=== PATIENT | female | born 1985 | race Caucasian/White ===

== ENCOUNTER 2017-08-26 14:39 | Emergency (ER) | payer OTHER ==
[2017-08-26] MEDS ORDERED: predniSONE 20 MG TABLET PO STA (15:07)
[2017-08-26] MEDS ORDERED: EPINEPHrine 1 MG/ML AMP IM STA (15:07)
--- NOTE | 2017-08-26 15:10 | ED Physician Documentation ---
PD HPI SKIN - Stated complaint Stated Complaint: ALLERGIC REACTION - Chief complaint Chief Complaint: Allergic Rx - History obtained from History obtained from: Patient - History of Present Illness Timing - onset: Other (At about 130 she tasted her son's amoxicillin, she just wanted to know how bad it tasted to know how much of a matthews it would be to get him to take it. Shortly thereafter, maybe 20 minutes later developed itching starting the scalp and then diffuse redness and nausea. No symptoms of angioedema or shortness of breath. She is not allergic to anything that we know of.) Review of Systems Ten Systems: 10 systems reviewed and negative Constitutional: denies: Fever, Chills Respiratory: denies: Dyspnea, Cough GI: reports: Nausea. denies: Abdominal Pain, Vomiting PD PAST MEDICAL HISTORY - Present Medications Home Medications: Ambulatory Orders Medication Instructions Recorded Confirmed EPINEPHrine [Epinephrine] 0.3 mg IJ ONCE PRN #2 auto.injct 08/26/17 predniSONE [Deltasone] 60 mg PO DAILY 5 Days tablet 08/26/17 - Allergies Allergies/Adverse Reactions: Allergies Allergy/AdvReac Type Severity Reaction Status Date / Time No Known Drug Allergies Allergy Verified 08/26/17 14:54 PD ED PE NORMAL - Vitals Vital signs reviewed: Yes - General General: Alert and oriented X 3, No acute distress - HEENT HEENT: PERRL, EOMI, Other (She has diffuse erythroderma with conjunctivitis bilaterally, no oral pharyngeal angioedema.) - Cardiac Cardiac: RRR, No murmur - Respiratory Respiratory: No respiratory distress, Clear bilaterally - Abdomen Abdomen: Non tender - Neuro Neuro: Alert and oriented X 3, Normal speech - Psych Psych: Normal mood, Normal affect Results - Vitals Vitals: Vital Signs - 24 hr 08/26/17 08/26/17 08/26/17 14:50 15:22 16:04 Temperature 37.1 C 36.8 C 36.4 C L Heart Rate 132 H 115 H 108 H Respiratory 20 18 15 Rate Blood Pressure 125/84 H 124/78 136/82 H O2 Saturation 96 98 97 Oxygen O2 Source Room air PD MEDICAL DECISION MAKING - ED course ED course: 31-year-old woman with mild anaphylaxis after tasting amoxicillin. She is administered epinephrine and steroids. She will be observed for several hours, she is driving and wanted to forego the Benadryl as in the past it has made her quite sleepy. She improved well and quickly after the epinephrine and was observed for a couple of hours without recurrence of her symptoms. The patient and family were counseled as to the diagnosis and need for follow- up. I counseled the patient with regard to signs and symptoms that would necessitate an urgent reevaluation in the emergency department. They understand they are welcome to return at any time if worse or if not improving as expected. This document was made in part using voice recognition software. While efforts are made to proofread this documents, sound alike and grammatical errors may occur. Departure - Departure Disposition: Home, Self Care Clinical Impression: Anaphylaxis Qualifiers: Encounter type: initial encounter Qualified Code(s): T78.2XXA - Anaphylactic shock, unspecified, initial encounter Condition: Good Record reviewed to determine appropriate education?: Yes Instructions: ED Drug React Allergic Prescriptions: EPINEPHrine [Epinephrine] 0.3 mg IJ ONCE PRN #2 auto.injct PRN Reason: Allergy Symptoms predniSONE [Deltasone] 60 mg PO DAILY 5 Days tablet Comments: Avoid amoxicillin in the future. Follow-up with your physician. For information on how to use the epinephrine autoinjector, lookup "EpiPen" on YouTube. Your blood pressure was elevated today on check into the emergency department. This does not mean that you have hypertension, it is a common phenomenon to come to the emergency department and have elevated blood pressure. I recommend that you see your primary care physician within the week to have it rechecked when you are feeling better.
[2017-08-26 17:53] VITALS: BP 117/77
== END 2017-08-26 17:58 | disposition home or self-care (01) ==
LOC: ED 14:39
DX: T88.6XXA Anaphylactic reaction due to adverse effect of correct drug or medicament properly administered, initial encounter (principal); T36.0X5A Adverse effect of penicillins, initial encounter; Y92.019 Unspecified place in single-family (private) house as the place of occurrence of the external cause; R03.0 Elevated blood-pressure reading, without diagnosis of hypertension
CPT/HCPCS: 96372; 99284; J7512

== ENCOUNTER 2021-02-26 13:02 | Outpatient (CLI) | payer OTHER ==
--- NOTE | 2021-02-26 13:47 | XRAY Report ---
PROCEDURE: Lumbar Spine 2 View INDICATIONS: LOW BACK PX TECHNIQUE: 2 views of the lumbar spine were acquired. COMPARISON: None. FINDINGS: Bones: 5 [id number] vertebrae are present. There is normal bony alignment. No vertebral body compression fractures. No suspicious bony lesions. Soft tissues: Overlying bowel gas pattern is normal. No suspicious soft tissue calcifications. IMPRESSION: No evidence acute bony abnormality of the lumbar spine. If clinical suspicion and/or symptoms persist, further assessment with repeat plain films or advanced imaging (e.g., CT, MRI, or bone scan) may be helpful for further assessment. Reviewed by: Jerry Graham MD on 02/26/2021 12:45 PM OTTO Approved by: Jerry Graham MD on 02/26/2021 12:45 PM OTTO Station ID: [id number]
== END 2021-02-26 13:03 | disposition home or self-care (01) ==
LOC: DI.N 13:02
PROVIDERS: ATTEND Nurse Practitioner
DX: M54.5 Low back pain (principal)

== ENCOUNTER 2021-04-06 14:59 | Outpatient (CLI) | payer OTHER ==
--- NOTE | 2021-04-06 16:01 | MRI Report ---
PROCEDURE: Lumbar Spine W/O INDICATIONS: LOW BACK PAIN TECHNIQUE: Noncontrast sagittal T1 spin echo and T2 fast echo, sagittal STIR, axial T1 and T2 fast spin echo thr ough the lumbar spine. In cases with scoliosis, additional coronal T2 fast spin echo may be performe d. COMPARISON: None. FINDINGS: Image quality: Excellent. Alignment and Curvature: There is normal bony alignment. Bone Marrow: Marrow is of normal overall signal. No acute vertebral body compression fractures. Spinal Cord: Conus medullaris terminates at the normal level. Visualized cord demonstrates normal s ignal and size. Paraspinous Soft Tissues: No paravertebral masses. T12-L1: No spinal canal or neural foraminal stenosis. L1-L2: No spinal canal or neural foraminal stenosis. L2-L3: No spinal canal or neural foraminal stenosis. L3-L4: Diffuse disc bulge with a superimposed broad-based posterior disc protrusion flattens and in dents the ventral thecal sac. Mild displacement of the descending L4 nerve roots within both subartic ular zones. No neural foraminal stenosis. Mild facet hypertrophy. L4-L5: Diffuse disc bulge with a superimposed protrusion flattens the ventral thecal sac. Mild disp lacement of the descending right L5 nerve root within the subarticular zones. No neural foraminal des nosis. Mild facet hypertrophy. L5-S1: Diffuse disc bulge with a superimposed extrusion spanning the subarticular zones. Displaceme nt of the bilateral descending S1 nerve roots. No neural foraminal stenosis. Mild facet hypertrophy. IMPRESSION: Mild lower lumbar spine degenerative changes with displacement and possible impingement of the descen ding L4, L5, and S1 nerve roots as described above. Correlate for potential corresponding radicular s ymptoms. Mild facet hypertrophy from L3-L4 through L5-S1, potential sources of nonradicular axial back pain. Reviewed by: Edgar Lu MD on 04/06/2021 4:00 PM PDT Approved by: Edgar Lu MD on 04/06/2021 4:00 PM PDT Station ID: [id number]
== END 2021-04-06 15:00 | disposition home or self-care (01) ==
LOC: DI 14:59
PROVIDERS: ATTEND Student in an Organized Health Care Education/Training Program
DX: M47.26 Other spondylosis with radiculopathy, lumbar region (principal); M47.27 Other spondylosis with radiculopathy, lumbosacral region; M51.16 Intervertebral disc disorders with radiculopathy, lumbar region; M51.17 Intervertebral disc disorders with radiculopathy, lumbosacral region